=== PATIENT | male | born 1995 | race Caucasian/White ===

== ENCOUNTER 2018-03-28 02:38 | Emergency (ER) | payer SELFPAY ==
[~2018-03-28] VITALS: Ht 185.4 cm; Wt 84.0 kg
[2018-03-28 05:31] LABS: BASOPHILS % 0.2 % (0.0-2.0); EOSINOPHILS % 0.7 % (0.0-5.0); HEMATOCRIT. 46.2 % (42.0-52.0); HEMOGLOBIN. 15.7 g/dL (14.0-18.0); LYMPHOCYTES % 8.6 % (20.0-50.0); MEAN CORPUSCULAR HEMOGLOBIN 30.3 pg (28.0-32.0); MEAN CORPUSCULAR VOLUME 88.8 fL (80.0-94.0); MEAN PLATELET VOLUME 9.1 fl (7.4-10.4); MONOCYTES % 8.6 % (2.0-8.0); NEUTROPHILS % 81.9 % (40.0-76.0); PLATELET 249 x1000/uL (130-400); RED CELL DISTRIBUTION WIDTH 13.6 % (11.6-14.6)
[2018-03-28 05:44] LABS: CHLORIDE 103 mEq/L (98-107)
[2018-03-28 05:49] LABS: ETHANOL BLOOD 154 mg/dL
[2018-03-28 07:53] VITALS: BP 121/60
== END 2018-03-28 08:06 | disposition home or self-care (01) ==
LOC: ER 02:51
DX: S02.2XXA Fracture of nasal bones, initial encounter for closed fracture (principal); F10.129 Alcohol abuse with intoxication, unspecified; H57.8 Other specified disorders of eye and adnexa; Y90.6 Blood alcohol level of 120-199 mg/100 ml; V43.02XA Car driver injured in collision with other type car in nontraffic accident, initial encounter; Y93.89 Activity, other specified; Y92.89 Other specified places as the place of occurrence of the external cause; Y99.8 Other external cause status
CPT/HCPCS: 36415; 70450; 70486; 72125; 80053; 85025; 99285; G0482